=== PATIENT | male | born 1940 | race Caucasian/White ===

== ENCOUNTER 2020-04-21 14:19 | Outpatient (CLI) | payer OTHER, SELFPAY ==
--- NOTE | 2020-04-24 14:15 | ONC FU_ITS ---
Dr. Cortez Patient Follow-Up Note Patient: Brad Mcdonald Unit #: [id number]: 1940 Dicatated By: Christian Cortez M.D.Date of Visit:Apr 21, 2020 Onc Med Follow-up/Prog Note Chief Complaint: Mediastinal/hilar lymphadenopathy. History of Present Illness: This is a 79 year-old man with mediastinal and right hilar lymphadenopathy. In December 2018 he had been seen by Dr. Roman because of pain in his left ear and jaw. His evaluation included a neck CT on 12/11/2018, which showed no significant soft tissue neck abnormality. There was cervical spondylosis and facet joint osteoarthritic changes at multiple levels. On 04/03/2019 he had further evaluation with contrast-enhanced CT of the chest. It showed some probable scarring in the posterior right midlung field. There were no other pulmonary parenchymal abnormalities described. There was noted to be a prominent superior mediastinal lymph node as well as smaller nodes within the mediastinum. A prominent lymph node also was noted in the right hilum. The clinical significance was uncertain, but a 3-month follow-up CT was recommended. I had seen him initially on 05/07/2019, and I had agreed with the recommendation to monitor with surveillance CT scans at 3-month intervals. He receives his primary care through the [facility] in [place]. He has multiple medical illnesses including hypertension, hyperlipidemia, type II diabetes, and GERD. He has a cardiac arrhythmia. In July 2019 he underwent coronary angioplasty/stent placement after presenting to the emergency room with chest pain. He has never smoked, but he does have a long history of chewing tobacco. INTERIM HISTORY: Following my initial visit with him he had continued his follow-up through the [facility]. I was expecting him to have a repeat chest CT in June, but that apparently was not done. His clinical course was then complicated by the hospitalization in July. Ultimately, he did have a repeat chest CT on 04/08/2020. It showed mediastinal and pulmonary granulomatous calcifications. There were irregular densities compatible with scant interstitial scarring in the lower lungs. No other mass or active infiltrate was noted. Multiple and somewhat conspicuous though not measurably enlarged or otherwise obviously pathologic mediastinal lymph nodes were again noted, but without interval change. His recent evaluation also included an MRI of the lumbar spine on 03/24/2020. It showed a central herniation of the L4-L5 disc but without neural impingement. There was no acute osseous abnormality noted. He is seen for a follow-up visit. His energy level is somewhat variable, but overall about the same. His ECOG score is 2. He has good appetite. His weight is up 10 pounds. He has not had fever or night sweats. He does not complain of shortness of breath or cough. He has just occasional chest pain. He has no GI complaints. He does report having some bladder leakage at night. He has been having pain in his back and in his shoulders and hips. He does not complain of headache or dizziness. He has some numbness in his toes, especially on the right foot. Medications: Atorvastatin Calcium 1 Tablet Oral daily, B-12 1 Tablet (of 1000 mcg) Oral daily, Clopidogrel Bisulfate 1 Tablet (of 75 mg) Oral daily, dilTIAZem HCl ER 1 Tablet Capsule SR 24 HR Oral b.i.d., Famotidine 1 Tablet (of 20 mg) Oral b.i.d., Gabapentin 1 Capsule (of 400 mg) Oral t.i.d. PRN, metFORMIN HCl 1 Tablet (of 1000 mg) Oral b.i.d., Metoprolol Tartrate 0.5 Tablet (of 50 mg) Oral b.i.d., Multivitamin Adults 1 Tablet Oral daily, NovoLIN 70/30 30 Units (of (70-30) 100 Units/mL) Subcutaneous b.i.d., PreserVision AREDS 1 Tablet Oral b.i.d., Tamsulosin HCl 1 Capsule (of 0.4 mg) Oral b.i.d., traMADol HCl 1 Tablet (of 50 mg) Oral four times a day PRN, Vitamin C 1 Capsule (of 500 mg) Oral daily, Vitamin D3 1 CA 125 Units/mL (of 2000 Units) Capsule Oral daily Allergies: Sulfa Antibiotics Review of Systems: Constitutional - His energy is variable, but overall about the same. He has limited activity. His appetite is good. His weight is up 10 pounds. He has no fever or night sweats. ECOG score is 2, ENMT - He complains that his nose closes up. No mouth sores. No sore throat or difficulty swallowing, Hematologic/Lymphatic - He has easy bruising, Respiratory - No shortness of breath. No cough. No pleuritic pain or hemoptysis, Cardiovascular - He underwent coronary angioplasty/stent placement in July 2019. He has occasional pain in the left chest, Gastrointestinal - No nausea or vomiting. No heartburn or acid reflux. No diarrhea or constipation. No blood in the stool or black stools, Genitourinary (M) - No dysuria or hematuria. No urinary frequency. He has some bladder leakage at night, Musculoskeletal - He has arthritis pain in his shoulders and hips. He also has back pain, Neurologic - No headache or dizziness. He has some numbness in his toes, particularly in the right foot. He has no other focal neurologic symptoms, Psychiatric - No anxiety or depression. He sometimes has difficulty sleeping. Vital Signs: Performed on Apr 21, 2020 14:41 Height - 70.50 in Weight - 173.2 lbs (HIGH) BSA - 1.97 sq.m BMI - 24.50 Temperature - 97.7 F (LOW) Pulse - 77 /min Respiration - 22 /min BP - 183/81 mm(hg) (HIGH) O2 Sat - 98 % Pain - 2 Physical Examination: Constitutional - He appears somewhat weak generally, Eyes - Sclerae nonicteric. Conjunctivae clear, ENMT - No lesions noted in the oral cavity, Hematologic/Lymphatic - No cervical, clavicular, or axillary adenopathy, Respiratory - Lungs are clear with diminished air movement bilaterally, Cardiovascular - Heart rhythm is irregular. There is no murmur, gallop, or rub noted, Abdomen - Soft. Liver and spleen are not enlarged. There is no abdominal mass or ascites noted and there is no inguinal adenopathy, Extremities - No edema, Neurologic - No focal neurologic deficits noted. Lab/Imaging: Laboratory studies from 04/08/2020 included CBC showing hemoglobin 14.0 g, white blood cell count 7400, and platelet count 165,000. Comprehensive metabolic profile showed borderline renal function with BUN 20 and creatinine 1.22 mg/dL. The bilirubin and liver enzymes were normal. Impression: 1. Patient with CT evidence of borderline enlarged mediastinal and right hilar lymph nodes. The clinical significance was uncertain. There were no other findings to suggest malignancy. 2. He had been showing gradual decline in performance status. His other medical illnesses include: 3. Hypertension. 4. Hyperlipidemia. 5. Type II diabetes. 6. Coronary artery disease with angioplasty/stent placement in July 2019. 7. Cardiac arrhythmia. 8. GERD. 9. Osteoarthritis. 10. Benign prostatic hypertrophy. 11. He has a history of depression. 12. 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 The initial plan was to continue monitoring his chest CT at 3-month intervals. His clinical course was complicated by a hospital admission in July 2019, at which time he underwent coronary angioplasty/stent placement. His clinical status has otherwise been stable. He ultimately did have a repeat chest CT in March 2020. According to the report, there appeared to be no interval enlargement of the lymph nodes and no other findings to suggest malignancy. Plan: He remains on observation/expectant management. I will obtain the CT disks from the [facility] and I will review them with the radiologist. He will have further evaluation and follow-up as indicated. Signed By: Christian Cortez M.D. <<Signature on File>>
== END 2020-04-21 14:20 | disposition home or self-care (01) ==
PROVIDERS: Family Provider General Practice; Visit Provider Internal Medicine Medical Oncology
DX: R59.0 Localized enlarged lymph nodes (principal); N40.0 Benign prostatic hyperplasia without lower urinary tract symptoms; I49.9 Cardiac arrhythmia, unspecified; F32.9 Major depressive disorder, single episode, unspecified; K21.9 Gastro-esophageal reflux disease without esophagitis; E78.5 Hyperlipidemia, unspecified; I10 Essential (primary) hypertension; E11.9 Type 2 diabetes mellitus without complications
CPT/HCPCS: 99214

== ENCOUNTER → 2021-04-15 09:02 | Outpatient (BNVA) | payer OTHER, SELFPAY | PROVIDERS: Family Provider General Practice; Visit Provider Surgery | DX: Z20.822 Contact with and (suspected) exposure to COVID-19 (principal) | CPT/HCPCS: 87635 ==

== ENCOUNTER 2021-04-20 10:06 | Day surgery (SDC) | payer OTHER, SELFPAY ==
[2021-04-19 14:21] VITALS: BMI 24.8
[2021-04-20] VITALS (8 sets, daily range): BP systolic 135–155; BP diastolic 44–81; PULSE 58–105; RESP 16–18; TEMP 36.3–36.7; O2SAT 99–100
[2021-04-20] MEDS: sodium chloride 0.9% 1,000 ML 30 ML IV (10:30)
--- NOTE | 2021-04-20 10:43 | P.HP_ITS ---
Same Day Surgery H&P Indication for Procedure/HPI DATE OF PROCEDURE: April 20, 2021 CHIEF COMPLAINT/INDICATIONFOR SURGICAL PROCEDURE: Cholelithiasis, biliary dyskinesia, plan for laparoscopic cholecystectomy PREOP DIAGNOSIS: Biliary dyskinesia PLANNED PROCEDRUE: Operation Date: 04/20/21 11:10 Proposed Procedures p Laparoscopic Cholecystectomy 25870 K82.8(Not Applicable) - Donovan Beltran MD Medications/Allergies* Home Medications Medication Instructions Recorded Confirmed Type artifi.tears(hypromellose)(PF) 0.3 1 drop OPHTHALMIC (EYE) BID PRN 12/12/19 04/19/21 History % eye drops cholecalciferol (vitamin D3) 50 2,000 unit PO DAILY 12/12/19 04/19/21 History mcg (2,000 unit) capsule diltiazem HCl 120 mg 120 mg PO BID 12/12/19 04/19/21 History capsule,extended release 12 hr docusate sodium 100 mg capsule 300 mg PO DAILY PRN cap 12/12/19 04/19/21 H istory gabapentin 400 mg capsule 400 mg PO TID 12/12/19 04/19/21 History glucose 4 gram chewable tablet 4 gm PO Q15M PRN 12/12/19 04/19/21 History insulin human U-100 NPH-regulr 35 unit SUBCUT BID ml 12/12/19 04/19/21 History 70-30 mix 100 unit/mL subcutaneous susp mecobalamin (vitamin B12) 1,000 1,000 mcg SUBLINGUAL DAILY 12/12/19 04/19/21 History mcg disintegrating tablet,sublingual metformin 1,000 mg tablet 1,000 mg PO BID 12/12/19 04/19/21 History metoprolol tartrate 50 mg tablet 25 mg PO BID tab 12/12/19 04/19/21 History nitroglycerin 0.4 mg sublingual 0.4 mg SUBLINGUAL Q5M PRN 12/12/19 04/19/21 History tablet tamsulosin 0.4 mg capsule 0.4 mg PO DAILY 12/12/19 04/19/21 History tramadol 50 mg tablet 50 mg PO QID PRN tab 12/12/19 04/19/21 History vit C 250 mg-vit E 90 mg-zinc 40 1 tab PO BID 12/12/19 04/19/21 History mg-copper 1 [id number] capsule ascorbic acid (vitamin C) 1,000 mg 1,000 mg PO DAILY tab 08/02/20 04/19/21 History tablet famotidine 20 mg tablet 20 mg PO BID tab 01/14/21 04/19/21 History Allergies/Adverse Reactions Allergy/AdvReac Type Severity Reaction Status Date / Time Sulfa (Sulfonamide Allergy UNKNOWN Verified 04/19/21 14:13 Antibiotics) Pertinent History/Comorbid Conditions* Medical History (Updated 03/18/21 @ 13:16 by Donovan Beltran MD) CAD (coronary artery disease) Diabetes mellitus HTN (hypertension) Hypercholesterolemia Hyperlipidemia Varicose veins of bilateral lower extremities with other complications Surgical History (Updated 03/18/21 @ 13:16 by Donovan Beltran MD) History of colonoscopy with polypectomy 01/2021 History of esophagogastroduodenoscopy (EGD) 01/2021 History of heart artery stent S/P blepharoplasty S/P cataract surgery S/P hemorrhoidectomy S/P skin biopsy Family History (Updated 12/12/19 @ 10:02 by Sera Bruno LPN) Diabetes Mother Heart disease Mother COPD (chronic obstructive pulmonary disease) Father Cancer Father Social History Smoking and tobacco status: current every day smoker (chew) Pertinent Exam Findings alert, oriented x 3 and regular rate & rhythm Recommendations Surgery/Procedure today Coding Level of Care Code Acute Biomedical Specialist for Reji Luciano
[2021-04-20 10:53] LABS: Glucose Point of Care 214 mg/dL (70-110)
--- NOTE | 2021-04-20 11:49 | P.ANESASSM_ITS ---
Pre-Anesthetic Assessment Pre-Anesthetic Assessment: Height/Weight: Height 1.78 m Weight 78.471 kg Temp Pulse Resp BP Pulse Ox 97.3 F L 58 L 18 135/67 99 04/20/21 10:25 04/20/21 10:25 04/20/21 10:25 04/20/21 10:25 04/20/21 10:25 Preop Diagnosis: Biliary dyskinesia Proposed Procedure: Operation Date: 04/20/21 11:10 Proposed Procedures p Laparoscopic Cholecystectomy 75719 K82.8(Not Applicable) - Donovan Beltran MD Was Beta Geovany taken within 24 hours: Yes Was Clonidine taken within 24 hours: N/A Last intake: Intake Last Liquid Date 04/19/21 Last Liquid Time 23:30 Last Solid Date 04/19/21 Last Solid Time 18:30 Social: Social History: No alcohol and No tobacco Exam: Pre-Anes Outpt Exam: alert, oriented x 3, clear to auscultation len aterally and regular rate & rhythm Airway: Submandibular: WNL Cervical ROM: WNL MP: 2 Dentition: Chipped CV/HEM: CV/HEM: CAD (stent) and HTN Metabolic: Metabolic: DM and Hyperlipidemia Anesthetic Plan: ASA status: 3 Anesthesia: General Risk of > 500 ml blood loss (7ml/kg in children): No PFSH Anesthesia PFSH: Medical History CAD (coronary artery disease) Diabetes mellitus HTN (hypertension) Hypercholesterolemia Hyperlipidemia Varicose veins of bilateral lower extremities with other complications Surgical History History of colonoscopy with polypectomy 01/2021 History of esophagogastroduodenoscopy (EGD) 01/2021 History of heart artery stent S/P blepharoplasty S/P cataract surgery S/P hemorrhoidectomy S/P skin biopsy Family History Mother Diabetes Heart disease Father Cancer COPD (chronic obstructive pulmonary disease) Social History Smoking and tobacco status: current every day smoker (chew) Data Anesthesia Other Labs: Laboratory Results - last 48 hr 04/20/21 10:48 POC Glucose 214 H Cardiac Studies: No Data to Display
--- NOTE | 2021-04-20 12:11 | PM.MISC ---
Documented by User: Monica Marie CRNA 04/20/21 12:47 Miscellaneous Note Purpose of Documentation: pyxis meds transfer (pharmacy notification) Note: meds pulled for previous surgery under Monalisa Ferguson this case cancelled and the patient was not in the pyxis anymore to transfer meds to [facility]. please charge meds to [facility] Documented by User: Asif oBrges 04/20/21 15:41
--- NOTE | 2021-04-20 13:44 | PM.OP ---
Operative Report Date of procedure: April 20, 2021 Pre-op Diagnosis: Biliary dyskinesia Post-op Diagnosis: Biliary dyskinesia Cholelithiasis Chronic cholecystitis Procedure Done: Laparoscopic cholecystectomy Specimens removed/disposition: Gallbladder Surgeon: Donovan Beltran Anesthesia: General Condition: stable Disposition: PACU Procedure: The patient was taken to the operating room and was intubated under general anesthesia. After the antibiotic had been administered, the abdomen was prepped and draped in a sterile manner. Using a #15 blade, a 1 centimeter infraumbilical curvilinear incision was made and using an open Peggy technique the peritoneal cavity was entered. A 10 millimeter port was placed and 15 millimeters of pneumoperitoneum was created. A 10 millimeter, 30 degrees scope was then introduced. Three 5 millimeter ports were placed in the epigastric, midclavicular and the anterior axillary line two fingerbreadths below the costal margin on the right side under the direct visualization. Ratcheted forceps were introduced into the lateral most port and was used to retract the fundus of the gallbladder cephalad and using forceps the infundibulum of the gallbladder was retracted laterally. The gallbladder was chronically inflamed and thickened. Using L-hook cautery the peritoneum overlying the Calot's triangle was opened medially and laterally until the cystic duct and the cystic artery were skeletonized. Dissection was carried along the body of the gallbladder and after ensuring critical view of safety, 4 clips applied on the cystic duct and 3 clips applied on the cystic artery and cut leaving, 3 clips on the remaining portion of the duct and 2 clips on the remaining portion of the artery. The rest of the gallbladder was dissected off the liver using L-hook cautery. There were couple of openings in the body of the gallbladder since the plane of dissection was difficult to identify due to inflammation, with spillage of stones which was irrigated and suctioned out. There was no bleeding or bile leaking noted from the gallbladder fossa and the clips appeared to be in place. An EndoCatch bag was introduced to remove the gallbladder. All the ports were removed under direct visualization and there was no bleeding noted from the port sites. The fascia of the umbilicus was closed using [id number] 0 Vicryl sutures and the subcutaneous tissue was approximated using 3-0 Vicryl sutures. The skin at all four ports were closed using 4-0 Monocryl and Dermabond. A total of 10 millimeters of 0.5% Marcaine was infiltrated around the port sites. The patient was stable throughout the procedure.
[2021-04-20] MEDS: HYDROcodone-acetaminophen 5-325 mg Tablet 1 TAB PO (14:12)
--- NOTE | 2021-04-20 15:41 | ANE.PACU2 ---
Inpatient post-anesthesia follow up: Airway intact: Yes Vital signs: Temperature 98.0 F Pulse Rate 94 Respiratory Rate 18 Blood Pressure 142/68 Pulse Oximetry 100 Oxygen Delivery Me thod Room Air Oxygen Flow Rate 8 Fraction of Inspir ed Oxygen Hydration adequate: Yes Nausea and vomiting: No Pain level: 2 Mental status: Baseline
== END 2021-04-20 14:35 | disposition home or self-care (01) ==
PROVIDERS: Visit Provider Surgery
PROC: 0FT44ZZ Resection of Gallbladder, Percutaneous Endoscopic Approach (ICD-10-PCS; CPT 47562; principal; 2021-04-20 11:00)
DX: K80.10 Calculus of gallbladder with chronic cholecystitis without obstruction (principal); I25.10 Atherosclerotic heart disease of native coronary artery without angina pectoris; Z95.5 Presence of coronary angioplasty implant and graft; I10 Essential (primary) hypertension; E11.9 Type 2 diabetes mellitus without complications; E78.5 Hyperlipidemia, unspecified; E78.00 Pure hypercholesterolemia, unspecified; F17.210 Nicotine dependence, cigarettes, uncomplicated; Z79.4 Long term (current) use of insulin
CPT/HCPCS: 47562; 36416; 82962; 88304; J0690; J3490; J7030

== ENCOUNTER 2021-10-04 09:45 | Outpatient (CLI) | payer OTHER, SELFPAY ==
--- NOTE | 2021-10-04 10:15 | USCV_ITS ---
Harry Brad Age: 81 Gender: M : 1940 Exam Date: 10/04/2021 10:27 Ordering Phys: Junior Nicholas MD ([email or web address]) Technologist: [email or web address] [place]am [place] [facility] [place]ication: POSSIBLE OCCLUSION/STENOSIS Risk Factors: Previous Vascular Surgery: Right Brachial BP: / Left Brachial BP: / Right Left Velocity (cm/s) Spectral Plaque Velocity (cm/s) Spectral Plaque Syst/Diast Broadening Syst/Diast Broadening 61.70/ 3.30 Prox CCA 50.10 / 4.90 42.70/ 5.40 Mid CCA 38.30 / 5.90 48.90/ 6.20 Distal CCA 34.40 / 4.90 39.60/ 5.40 Prox ICA 77.60 / 10.50 26.50/ 4.30 Mid ICA 77.60 / 10.50 20.50/ 3.40 Distal ICA 53.65 / 8.50 49.70 ECA 81.50 0.64 ICA/CCA 1.55 Vertebral 28.20/ 3.40 cm/s 61.80/ 2.65 cm/s Subclavian 73.60 CONCLUSIONS Right ICA stenosis <50%. Mild atheromatous plaque right carotid bulb/ICA. Left ICA stenosis <50%. Moderate atheromatous plaque left carotid bulb/ICA. Normal antegrade Doppler flow noted in the right vertebral artery. Normal antegrade Doppler flow noted in the left vertebral artery. Jameel Sandoval MD (Electronically Signed) Final Date: 04 October 2021 12:27 S
== END 2021-10-04 09:46 | disposition home or self-care (01) ==
LOC: RAD 09:50
PROVIDERS: Visit Provider Internal Medicine Cardiovascular Disease
DX: I65.23 Occlusion and stenosis of bilateral carotid arteries (principal); M25.569 Pain in unspecified knee
CPT/HCPCS: 73560; 73565; 93880

== ENCOUNTER → 2022-01-23 14:32 | Outpatient (BNVA) | payer OTHER, SELFPAY | PROVIDERS: Visit Provider Internal Medicine Cardiovascular Disease | DX: I25.10 Atherosclerotic heart disease of native coronary artery without angina pectoris (principal); I65.29 Occlusion and stenosis of unspecified carotid artery; I10 Essential (primary) hypertension; E78.5 Hyperlipidemia, unspecified; F17.220 Nicotine dependence, chewing tobacco, uncomplicated | CPT/HCPCS: 99214 ==

== ENCOUNTER → 2022-08-10 12:49 | Outpatient (BNVA) | payer OTHER, SELFPAY | PROVIDERS: Visit Provider Nurse Practitioner Family | DX: I25.10 Atherosclerotic heart disease of native coronary artery without angina pectoris (principal); F17.220 Nicotine dependence, chewing tobacco, uncomplicated; I10 Essential (primary) hypertension | CPT/HCPCS: 99214 ==

== ENCOUNTER 2022-08-17 14:02 | Outpatient (CLI) | payer OTHER, SELFPAY ==
--- NOTE | 2022-08-17 14:30 | USCV_ITS ---
Brad Mcdonald Age: 81 Gender: M : 1940 Exam Date: 08/17/2022 14:26 Ordering Phys: Cheryl Sepulveda Technologist: SANDY Exam Location: [facility] Indication: EVAL FOR CAROTID STENOSIS Risk Factors: Previous Vascular Surgery: Right Brachial BP: / Left Brachial BP: / Right Left Velocity (cm/s) Spectral Plaque Velocity (cm/s) Spectral Plaque Syst/Diast Broadening Syst/Diast Broadening 109.40/17.90 Prox CCA 78.90 / 12.00 64.90/ 8.50 Mid CCA 66.00 / 14.80 54.70/ 9.40 Distal CCA 66.80 / 12.40 44.70/ 9.70 Prox ICA 87.10 / 14.30 57.30/ 12.00 Mid ICA 76.90 / 16.30 66.45/ 15.15 Distal ICA 72.20 / 18.60 99.10 ECA 99.20 0.69 ICA/CCA 1.10 Antegrade Vertebral Antegrade 49.30/ 8.30 cm/s 51.30/ 9.30 cm/s Tri Subclavian Tri 76.40 139.3 0 FINDINGS Comparison:. 10/04/21. No significant elevation of systolic or diastolic velocities. Waveforms are normal. Minimal bilateral, atherosclerotic plaque with no elevation of velocity. Antegrade vertebral arteries. CONCLUSIONS Bilateral ICA stenosis less than 50%. No interval change in stenosis since prior exam. Dr. Fanta Jackman DO (Electronically Signed) Final Date: 17 August 2022 15:09 S
== END 2022-08-17 14:03 | disposition home or self-care (01) ==
LOC: RAD 14:03
PROVIDERS: Visit Provider Nurse Practitioner Family
DX: R09.89 Other specified symptoms and signs involving the circulatory and respiratory systems (principal)
CPT/HCPCS: 93880

== ENCOUNTER → 2023-02-23 10:44 | Outpatient (BNVA) | payer OTHER, SELFPAY | PROVIDERS: Visit Provider Nurse Practitioner Family | DX: L82.1 Other seborrheic keratosis (principal); Z85.828 Personal history of other malignant neoplasm of skin; L57.8 Other skin changes due to chronic exposure to nonionizing radiation; L57.0 Actinic keratosis; L81.4 Other melanin hyperpigmentation; D22.5 Melanocytic nevi of trunk; Z71.89 Other specified counseling; L85.3 Xerosis cutis; S51.811A Laceration without foreign body of right forearm, initial encounter; S51.812A Laceration without foreign body of left forearm, initial encounter; X58.XXXA Exposure to other specified factors, initial encounter | CPT/HCPCS: 17000; 17003; 99214 ==

== ENCOUNTER → 2023-02-27 12:58 | Outpatient (BNVA) | payer OTHER, SELFPAY | PROVIDERS: Visit Provider Specialist | DX: I25.10 Atherosclerotic heart disease of native coronary artery without angina pectoris (principal); I10 Essential (primary) hypertension; E78.00 Pure hypercholesterolemia, unspecified; F17.220 Nicotine dependence, chewing tobacco, uncomplicated; Z79.82 Long term (current) use of aspirin | CPT/HCPCS: 99214 ==

== ENCOUNTER → 2023-07-12 14:21 | Outpatient (BNVA) | payer OTHER, SELFPAY | PROVIDERS: Visit Provider Podiatrist Foot & Ankle Surgery | DX: E11.42 Type 2 diabetes mellitus with diabetic polyneuropathy (principal); L60.3 Nail dystrophy; M20.41 Other hammer toe(s) (acquired), right foot; M20.42 Other hammer toe(s) (acquired), left foot; Z79.4 Long term (current) use of insulin; Z79.84 Long term (current) use of oral hypoglycemic drugs | CPT/HCPCS: 11721; 99203 ==

== ENCOUNTER → 2023-07-31 12:43 | Outpatient (BNVA) | payer OTHER, SELFPAY | PROVIDERS: Visit Provider Nurse Practitioner Family | DX: Z85.828 Personal history of other malignant neoplasm of skin (principal); L57.0 Actinic keratosis; L82.1 Other seborrheic keratosis; L57.8 Other skin changes due to chronic exposure to nonionizing radiation; L81.4 Other melanin hyperpigmentation; D22.5 Melanocytic nevi of trunk; L85.3 Xerosis cutis; S51.811A Laceration without foreign body of right forearm, initial encounter; S51.812A Laceration without foreign body of left forearm, initial encounter; X58.XXXA Exposure to other specified factors, initial encounter | CPT/HCPCS: 17000; 99213 ==

== ENCOUNTER → 2023-09-05 13:24 | Outpatient (BNVA) | payer OTHER, SELFPAY | PROVIDERS: Visit Provider Podiatrist Foot & Ankle Surgery | DX: E11.42 Type 2 diabetes mellitus with diabetic polyneuropathy (principal); Z79.4 Long term (current) use of insulin; L60.3 Nail dystrophy; M20.41 Other hammer toe(s) (acquired), right foot; M20.42 Other hammer toe(s) (acquired), left foot; Z79.84 Long term (current) use of oral hypoglycemic drugs | CPT/HCPCS: 11721 ==

== ENCOUNTER → 2023-09-11 13:43 | Outpatient (BNVA) | payer OTHER, SELFPAY | PROVIDERS: Visit Provider Internal Medicine Cardiovascular Disease | DX: I25.10 Atherosclerotic heart disease of native coronary artery without angina pectoris (principal); I65.23 Occlusion and stenosis of bilateral carotid arteries; E78.5 Hyperlipidemia, unspecified; I10 Essential (primary) hypertension; I83.893 Varicose veins of bilateral lower extremities with other complications; F17.220 Nicotine dependence, chewing tobacco, uncomplicated | CPT/HCPCS: 99214 ==

== ENCOUNTER → 2023-12-05 14:03 | Outpatient (BNVA) | payer OTHER, SELFPAY | PROVIDERS: Visit Provider Podiatrist Foot & Ankle Surgery | DX: E11.42 Type 2 diabetes mellitus with diabetic polyneuropathy (principal); L60.3 Nail dystrophy; M20.41 Other hammer toe(s) (acquired), right foot; M20.42 Other hammer toe(s) (acquired), left foot; Z79.84 Long term (current) use of oral hypoglycemic drugs; Z79.4 Long term (current) use of insulin | CPT/HCPCS: 11721 ==

== ENCOUNTER → 2024-03-11 13:32 | Outpatient (BNVA) | payer OTHER, SELFPAY | PROVIDERS: PCP Family Medicine; Visit Provider Internal Medicine Cardiovascular Disease | DX: I25.10 Atherosclerotic heart disease of native coronary artery without angina pectoris (principal); I10 Essential (primary) hypertension; I83.893 Varicose veins of bilateral lower extremities with other complications; I65.23 Occlusion and stenosis of bilateral carotid arteries; E78.00 Pure hypercholesterolemia, unspecified | CPT/HCPCS: 99214 ==

== ENCOUNTER → 2024-06-18 13:16 | Outpatient (BNVA) | payer OTHER, SELFPAY | PROVIDERS: PCP Family Medicine; Visit Provider Podiatrist Foot & Ankle Surgery | DX: E11.42 Type 2 diabetes mellitus with diabetic polyneuropathy (principal); L60.3 Nail dystrophy; M20.41 Other hammer toe(s) (acquired), right foot; M20.42 Other hammer toe(s) (acquired), left foot; Z79.4 Long term (current) use of insulin; Z79.84 Long term (current) use of oral hypoglycemic drugs | CPT/HCPCS: 11721 ==

== ENCOUNTER → 2024-10-16 13:39 | Outpatient (BNVA) | payer OTHER, SELFPAY | PROVIDERS: PCP Family Medicine; Visit Provider Internal Medicine Cardiovascular Disease | DX: I10 Essential (primary) hypertension (principal); I25.10 Atherosclerotic heart disease of native coronary artery without angina pectoris; I65.23 Occlusion and stenosis of bilateral carotid arteries; E78.5 Hyperlipidemia, unspecified; K21.9 Gastro-esophageal reflux disease without esophagitis; I83.93 Asymptomatic varicose veins of bilateral lower extremities; F17.220 Nicotine dependence, chewing tobacco, uncomplicated | CPT/HCPCS: 99214 ==

== ENCOUNTER → 2024-12-17 14:27 | Outpatient (BNVA) | payer OTHER, SELFPAY | PROVIDERS: PCP Family Medicine; Visit Provider Podiatrist Foot & Ankle Surgery | DX: E11.42 Type 2 diabetes mellitus with diabetic polyneuropathy (principal); L60.3 Nail dystrophy; M20.41 Other hammer toe(s) (acquired), right foot; M20.42 Other hammer toe(s) (acquired), left foot | CPT/HCPCS: 11721 ==

== ENCOUNTER 2025-02-03 11:22 | Emergency (ER) | payer OTHER, SELFPAY ==
[2025-02-03 11:43] VITALS: BP 102/50; PULSE 88; RESP 18; TEMP 37.2; O2SAT 97; BMI 26.2
--- NOTE | 2025-02-03 11:57 | W.ED.MALEGU ---
HPI - Male Genitourinary General: Chief complaint: Urogenital-Male Stated complaint: pain when urinating, confusion Time Seen by Provider: 02/03/25 11:43 Source: patient Mode of arrival: ambulatory Limitations: no limitations History of Present Illness: 84-year-old male states he believes he has UTI states the last 2 days has had increased frequency along with burning with urination states he had a history UTIs in the past. States he had some slight confusion he is answer my questions appropriately states he just felt more tired than normal denies any hematuria or vomiting Associated symptoms: Reports dysuria; Deny nausea or vomiting Related Data Home Medications ?Medication ?Instructions ?Recorded ?Confirmed artifi.tears(hypromellose)(PF) 0.3 1 drop ophthalmic (eye) BID PRN 12/12/19 12/17/24 % eye drops Dry Eyes cholecalciferol (vitamin D3) 50 2,000 unit PO DAILY 12/12/19 12/17/24 mcg (2,000 unit) capsule diltiazem HCl 120 mg 120 mg PO BID 12/12/19 12/17/24 capsule,extended release 12 hr gabapentin 400 mg capsule 400 mg PO TID 12/12/19 12/17/24 glucose 4 gram chewable tablet 4 gm PO Q15M PRN Hypoglycemia 12/12/19 12/17/24 mecobalamin (vitamin B12) 1,000 1,000 mcg sublingual DAILY 12/12/19 12/17/24 mcg disintegrating tablet,sublingual metformin 1,000 mg tablet 1,000 mg PO BID 12/12/19 12/17/24 metoprolol tartrate 50 mg tablet 25 mg PO BID 12/12/19 12/17/24 nitroglycerin 0.4 mg sublingual 0.4 mg sublingual Q5M PRN chest 12/12/19 12/17/24 tablet (Nitrostat) pain vit C 250 mg-vit E 90 mg-zinc 40 1 tab PO BID 12/12/19 12/17/24 mg-copper 1 [id number]-[id number] capsule (PreserVision AREDS-2) ascorbic acid (vitamin C) 1,000 mg 1,000 mg PO DAILY 08/02/20 12/17/24 tablet famotidine 20 mg tablet (Pepcid) 20 mg PO BID 01/14/21 12/17/24 atorvastatin 40 mg tablet (Lipitor) 40 mg PO DAILY 10/16/24 12/17/24 insulin human U-100 NPH-regulr 50 unit SUBCUT DIRECTED 10/16/24 12/17/24 70-30 mix 100 unit/mL subcutaneous susp (Novolin 70/30 U-100 Insulin) tramadol 50 mg tablet 100 mg PO BID PRN pain 10/16/24 12/17/24 Previous Rx's ?Medication ?Instructions ?Recorded aspirin 81 mg tablet,delayed 81 mg PO DAILY #90 tabs 07/28/21 release (Adult Low Dose Aspirin) cephalexin 500 mg capsule 500 mg PO TID 7 days #21 caps 02/03/25 Allergies Allergy/AdvReac Type Severity Reaction Status Date / Time Sulfa (Sulfonamide Allergy UNKNOWN Verified 12/17/24 14:32 Antibiotics) Review of Systems Const: Denies: fever(s), chills, body aches or change in appetite ENMT: Denies: throat pain or dental pain Card: Denies: chest pain Resp: Denies: dyspnea GI: Denies: abdominal pain, nausea, vomiting or diarrhea : Reports: dysuria, urinary frequency and urinary urgency Musc: Denies: neck pain or back pain Skin/Breast: Denies: rash Neuro: Denies: headache(s) PFSH ED PFSH: Medical History History of nonmelanoma skin cancer Hypercholesterolemia Diabetes mellitus Hyperlipidemia CAD (coronary artery disease) Varicose veins of bilateral lower extremities with other complications HTN (hypertension) Surgical History Status post laparoscopic cholecystectomy (04/20/21) S/P hemorrhoidectomy S/P cataract surgery S/P blepharoplasty S/P skin biopsy History of colonoscopy with polypectomy 01/2021 History of esophagogastroduodenoscopy (EGD) 01/2021 History of heart artery stent Family History Mother Diabetes Heart disease Cancer Father COPD (chronic obstructive pulmonary disease) Lung disease Sister CAD (coronary artery disease), Onset Age: 80 Diabetes Sister CAD (coronary artery disease), Onset Age: 60 Family/Other Lung disease Denies family history of Clotting disorder Dementia Chronic kidney disease (CKD) Suicide Anesthesia complication Bleeding disorder Stroke Social History Smoking and tobacco/nicotine status: current every day tobacco/nicotine user smokeless tobacco Smokeless tobacco user: snuff Alcohol intake: never Substance/Drug Use: never Physical Exam Const: COMMON NORMALS: no acute distress, patient oriented x3 and healthy appearing GENERAL APPEARANCE: does not appear older than stated age HENMT: COMMON NORMALS: normocephalic and atraumatic HEAD & SCALP: normocephalic and atraumatic Eye: COMMON NORMALS: conjunctivae normal CONJUNCTIVA: Yes conjunctivae normal Neck/C-Spine: COMMON NORMALS: full ROM and supple Chest: COMMONS NORMALS: normal inspection of the chest Resp: COMMON NORMALS: normal respiratory effort, No retractions, No use of accessory muscles and clear to auscultation bilaterally AUSCULTATION: clear to auscultation bilaterally Cardio: COMMON NORMALS: regular rate, regular rhythm and No murmurs present (Cardio) RATE: regular rate RHYTHM: regular rhythm GI: COMMON NORMALS: Normal to inspection, nondistended, normoactive bowel sounds present, Soft to palpation, non-tender and no masses PALPATION: Yes Soft to palpation Extremity: COMMON NORMALS: normal to inspection and full ROM Neuro: COMMON NORMALS: patient oriented x3, moves all extremities and no focal motor deficits Psych: COMMON NORMALS: mental status grossly normal, Normal thought process present and cooperative THOUGHT PROCESS: Normal thought process present Skin: COMMON NORMALS: no rashes or lesions noted and no wounds GENERAL SKIN EXAM: no rashes or lesions noted Course Vital Signs: Vital signs: Vital Signs Temperature 98.9 F 02/03/25 11:43 Pulse Rate 88 02/03/25 11:43 Respiratory Rate 18 02/03/25 11:43 Blood Pressure 102/50 02/03/25 11:43 Pulse Oximetry 98 02/03/25 12:09 Oxygen Delivery Me thod Room Air 02/03/25 12:09 MDM - Male Medical Decision Making Patient presents for dysuria urine does show likely UTI does have hematuria as well did discuss CT findings of possible cyst on his kidney he is to follow-up with urology will start him on antibiotics he is to return if worsening he understands agrees to plan. Medical Records I reviewed the patient's medical records. Lab Data I reviewed the patient's lab results. 02/03/25 12:12 02/03/25 12:12 Radiology Impressions Abdomen/Pelvis CT 02/03/25 12:16 IMPRESSION: 1. No renal obstruction or hydronephrosis. 2. No ureteral calcifications. 3. Hyperdense mass from the posterior mid RIGHT kidney measures 1.3 cm. This may be a hemorrhagic cyst. Recommend follow-up renal ultrasound. 4. Prostate gland enlargement. 5. Normal appendix. 6. Mild diverticulosis without acute diverticulitis. 7. Bilateral fat-containing inguinal hernias. 8. Prior cholecystectomy. Laboratory Results WBC 16.92 10^3/uL (3.29-11.43) H 02/03/25 12:12 RBC 4.52 10^6/uL (3.85-5.65) 02/03/25 12:12 Hgb 13.10 g/dL (11.27-16.99) 02/03/25 12:12 Hct 41.0 % (37-53) 02/03/25 12:12 MCV 90.7 fl (82-101) 02/03/25 12:12 MCH 29.0 pg (27-33) 02/03/25 12:12 MCHC 32.0 g/dL (30-55) 02/03/25 12:12 RDW 13.8 % (12.1-15.1) 02/03/25 12:12 Plt Count 135 10^3/cmm (157-399) L 02/03/25 12:12 MPV 9.6 fL (7.4-10.4) 02/03/25 12:12 Neut % (Auto) 82.1 % 02/03/25 12:12 Lymph % (Auto) 6.9 % 02/03/25 12:12 [place] % (Auto) 9.9 % 02/03/25 12:12 Eos % (Auto) 0.1 % 02/03/25 12:12 Baso % (Auto) 0.2 % 02/03/25 12:12 Neut # (Auto) 13.89 10^3/uL (1.8-7.7) H 02/03/25 12:12 Lymph # (Auto) 1.2 10^3/uL (0.8-4.8) 02/03/25 12:12 [place] # (Auto) 1.7 10^3/uL (0.2-0.9) H 02/03/25 12:12 Eos # (Auto) 0.0 10^3/uL (0.0-0.8) 02/03/25 12:12 Baso # (Auto) 0.0 10^3/uL (0.0-0.1) 02/03/25 12:12 Nucleated RBC % (auto) 0 % 02/03/25 12:12 Nucleated RBCs # 0.0 /100WBC 02/03/25 12:12 Sodium 134 mmol/L (136-145) L 02/03/25 12:12 Potassium 4.6 mmol/L (3.5-5.1) 02/03/25 12:12 Chloride 98 mmol/L (98-107) 02/03/25 12:12 Carbon Dioxide 24 mmol/L (22-29) 02/03/25 12:12 Anion Gap 16.6 (5-19) 02/03/25 12:12 BUN 24 mg/dL (8-23) H 02/03/25 12:12 Creatinine 1.2 mg/dL (0.7-1.2) 02/03/25 12:12 GFR Calculation Not Reportable 02/03/25 12:12 Glucose 140 mg/dL (65-115) H 02/03/25 12:12 Calculated Osmolality 284 mOsm/kg (285-295) L 02/03/25 12:12 Calcium 9.2 mg/dL (8.5-10.5) 02/03/25 12:12 Total Bilirubin 0.7 mg/dL (0.15-1.2) 02/03/25 12:12 AST 14 U/L (0-40) 02/03/25 12:12 ALT 18 U/L (0-41) 02/03/25 12:12 Alkaline Phosphatase 104 U/L (40-130) 02/03/25 12:12 Total Protein 6.9 g/dL (6.6-8.7) 02/03/25 12:12 Albumin 3.8 g/dL (3.5-5.2) 02/03/25 12:12 Globulin 3.1 g/dL (1.3-4.6) 02/03/25 12:12 Lipase 9 U/L (13-60) L 02/03/25 12:12 Urine Color Yellow (Yellow) 02/03/25 11:55 Urine Appearance Clear (CLEAR) 02/03/25 11:55 Urine pH 6.0 (5-7) 02/03/25 11:55 Ur Specific [place] 1.018 (1.005-1.030) 02/03/25 11:55 Urine Protein 1+ (Negative) A 02/03/25 11:55 Urine Glucose (UA) Negative (Normal) 02/03/25 11:55 Urine Ketones Negative (Negative) 02/03/25 11:55 Urine Blood 3+ (Negative) A 02/03/25 11:55 Urine Nitrate Negative (Negative) 02/03/25 11:55 Urine Bilirubin Negative (Negative) 02/03/25 11:55 Urine Urobilinogen 1.0 mg/dL (Negative) 02/03/25 11:55 Ur Leukocyte Esterase 2+ (Negative) A 02/03/25 11:55 Urine RBC 21-50 /hpf (0-2) H 02/03/25 11:55 Urine WBC 51-100 /hpf (0-5) H 02/03/25 11:55 Ur Squamous Epith Cells 0-5 /hpf (0-5) 02/03/25 11:55 Amorphous Sediment Not Reportable 02/03/25 11:55 Urine Bacteria Trace /hpf (NONE) 02/03/25 11:55 Hyaline Casts 0-4 /lpf H 02/03/25 11:55 All radiology interpretation(s) finalized by discharge Discharge Plan Discharge Patient Disposition: Home Clinical Impression: Urinary tract infection, Hematuria Condition: Stable Prescriptions: New cephalexin 500 mg capsule 500 mg PO TID 7 Days Qty: 21 0RF No Action mecobalamin (vitamin B12) 1,000 mcg tablet,disintegrating 1,000 mcg SUBLINGUAL DAILY diltiazem HCl 120 mg capsule,extended release 12 hr 120 mg PO BID gabapentin 400 mg capsule 400 mg PO TID metformin 1,000 mg tablet 1,000 mg PO BID metoprolol tartrate 50 mg tablet 25 mg PO BID nitroglycerin [Nitrostat] 0.4 mg tablet, sublingual 0.4 mg SUBLINGUAL Q5M PRN (Reason: chest pain) artifi.tears(hypromellose)(PF) 0.3 % drops 1 drop ophthalmic (eye) BID PRN (Reason: Dry Eyes) PreserVision AREDS-2 [id number] mc-chmt-dd-mg capsule 1 tab PO BID glucose 4 gram tablet,chewable 4 gm PO Q15M PRN (Reason: Hypoglycemia) cholecalciferol (vitamin D3) 50 mcg (2,000 unit) capsule 2,000 unit PO DAILY ascorbic acid (vitamin C) 1,000 mg tablet 1,000 mg PO DAILY famotidine [Pepcid] 20 mg tablet 20 mg PO BID Novolin 70/30 U-100 Insulin 100 unit/mL (70-30) suspension 50 unit SUBCUT DIRECTED Rx Instructions: 50 units am 15 units noon 50 units pm tramadol 50 mg tablet 100 mg PO BID PRN (Reason: pain) aspirin [Adult Low Dose Aspirin] 81 mg tablet,delayed release (DR/EC) 81 mg PO DAILY Qty: 90 3RF atorvastatin [Lipitor] 40 mg tablet 40 mg PO DAILY Discharge Orders: Discharge ED (Routine); Ordered 02/03/25 Ordered By: Douglas Pleitez Discharge Diet: Advance as tolerated Discharge Activity: Resume usual activity Patient Instructions: Urinary Tract Infection in Men (ED), Hematuria (ED) Print Language: Romanian Coding Level of Care Code ED Platform Attendant for Reji Luciano
[2025-02-03 12:02] LABS: Bilirubin Urine Negative (Negative); Blood Urine 3+ (Negative); Glucose Urine UA Negative (Normal); Ketones Urine Negative (Negative); Leukocyte Esterase Urine 2+ (Negative); Nitrate Urine Negative (Negative); Protein Urine 1+ (Negative); Specific Gravity, Urine 1.018 (1.005-1.030); Urine Appearance Clear (CLEAR); Urine Color Yellow (Yellow)
[2025-02-03 12:05] LABS: Add Urine Microscopic? YES; Bacteria Urine Trace /hpf; Hyaline Casts Urine 0-4 /lpf; RBC Urine 21-50 /hpf (0-2); Squamous Epithelial Cell Urine 0-5 /hpf (0-5); WBC Urine 51-100 /hpf (0-5)
[2025-02-03 12:09] VITALS: O2SAT 98
[2025-02-03 12:15] LABS: Add Urine Culture? Yes
--- NOTE | 2025-02-03 12:16 | CT_ITS ---
WS: [id number] CT ABDOMEN AND PELVIS NONCONTRAST HISTORY: hematuria TECHNIQUE: Imaging performed through the abdomen and pelvis. Coronal and sagittal reformats are submitted. All CT scans at [facility] use at least one of these dose optimization techniques: automated exposure control; mA and/or kV adjustment per patient size (includes targeted exams where dose is matched to clinical indication); or iterative reconstruction. DLP: 669.72 mGy.cm COMPARISON: None available. Lower thorax: Dependent changes at the lung bases. Heart size is normal. Small hiatal hernia. Liver: Normal size liver. No mass or bile duct dilatation. Gallbladder: Prior cholecystectomy. No bile duct dilatation. Pancreas: Normal size and attenuation. Normal pancreatic duct. No pancreatitis or mass. Spleen: Normal size with granulomata. Adrenal glands: Normal. No mass. Right kidney: Perinephric stranding. No obstruction. Hyperdense mass from the posterior mid kidney measures 1.3 cm. No obstruction. Left kidney: Mild perinephric stranding with no obstruction. Aorta: Moderate to severe atherosclerosis abdominal aorta. No aneurysm. Atherosclerosis continues into the common iliac arteries. No free fluid, intraperitoneal air or significant lymphadenopathy. GI tract: Small hiatal hernia. Nondistended stomach. No small bowel obstruction. Normal appendix. Mild distal diverticulosis without acute diverticulitis throughout the descending and sigmoid colon. Mild constipation. Abdominal wall: Tiny umbilical hernia contains fat. Patent bilateral inguinal canals also containing fat only. Pelvis: No free fluid. Urinary bladder is only minimally distended. Prostate is mildly enlarged encroaching upon the bladder. Osseous structures: Unremarkable. CT/CT kidney stone [id number] IMPRESSION: 1. No renal obstruction or hydronephrosis. 2. No ureteral calcifications. 3. Hyperdense mass from the posterior mid RIGHT kidney measures 1.3 cm. This m ay be a hemorrhagic cyst. Recommend follow-up renal ultrasound. 4. Prostate gland enlargement. 5. Normal appendix. 6. Mild diverticulosis without acute diverticulitis. 7. Bilateral fat-containing inguinal hernias. 8. Prior cholecystectomy.
[2025-02-03 12:27] LABS: Basophils % 0.2 %; Eosinophils % 0.1 %; Lymphocytes # 1.2 10^3/uL (0.8-4.8); Lymphocytes % 6.9 %; Mean Corpuscular Volume 90.7 fl (82-101); Mean Platelet Volume 9.6 fL (7.4-10.4); Monocytes # 1.7 10^3/uL (0.2-0.9); Monocytes % 9.9 %; Neutrophils # 13.89 10^3/uL (1.8-7.7); Neutrophils % 82.1 %; Nucleated Red Blood Cells % 0 %; Platelet Count 135 10^3/cmm (157-399); Red Blood Count 4.52 10^6/uL (3.85-5.65); Red Cell Distribution Width 13.8 % (12.1-15.1); White Blood Count 16.92 10^3/uL (3.29-11.43)
[2025-02-03] MEDS: cefTRIAXone 1,000 mg SDV 1000 MG IVP (12:27)
[2025-02-03 12:49] LABS: Alanine Aminotransferase 18 U/L (0-41); Albumin Level 3.8 g/dL (3.5-5.2); Alkaline Phosphatase 104 U/L (40-130); Anion Gap 16.6 (5-19); Aspartate Amino Transferase 14 U/L (0-40); Blood Urea Nitrogen 24 mg/dL (8-23); Calcium 9.2 mg/dL (8.5-10.5); Carbon Dioxide 24 mmol/L (22-29); Chloride 98 mmol/L (98-107); Creatinine Clr Calc Pharmacy 50.8005; Globulin 3.1 g/dL (1.3-4.6); Glucose 140 mg/dL (65-115); Lipase 9 U/L (13-60); Osmolality Calculated 284 mOsm/kg (285-295); Potassium 4.6 mmol/L (3.5-5.1); Sodium 134 mmol/L (136-145); Total Bilirubin 0.7 mg/dL (0.15-1.2); Total Protein 6.9 g/dL (6.6-8.7)
[2025-02-03 13:47] VITALS: BP 110/74; PULSE 76; O2SAT 96
--- NOTE | 2025-02-05 09:00 | DCPLANNER ---
faxed urology referral to [facility]
== END 2025-02-03 13:48 | disposition home or self-care (01) ==
PROVIDERS: Emergency Provider Emergency Medicine
DX: N39.0 Urinary tract infection, site not specified (principal); R31.9 Hematuria, unspecified; E78.5 Hyperlipidemia, unspecified; E11.9 Type 2 diabetes mellitus without complications; I25.10 Atherosclerotic heart disease of native coronary artery without angina pectoris; I10 Essential (primary) hypertension; F17.220 Nicotine dependence, chewing tobacco, uncomplicated; Z79.899 Other long term (current) drug therapy; Z79.82 Long term (current) use of aspirin; Z79.4 Long term (current) use of insulin; Z79.84 Long term (current) use of oral hypoglycemic drugs
CPT/HCPCS: 36415; 74176; 80053; 81001; 83690; 85025; 87077; 87086; 87186; 96374; 99285; J0696

== ENCOUNTER → 2025-03-09 13:17 | Outpatient (BNVA) | payer OTHER, SELFPAY | PROVIDERS: Visit Provider Podiatrist Foot & Ankle Surgery | DX: E11.42 Type 2 diabetes mellitus with diabetic polyneuropathy (principal); L60.3 Nail dystrophy; M20.41 Other hammer toe(s) (acquired), right foot; E11.8 Type 2 diabetes mellitus with unspecified complications; M20.42 Other hammer toe(s) (acquired), left foot; Z79.4 Long term (current) use of insulin; Z79.84 Long term (current) use of oral hypoglycemic drugs | CPT/HCPCS: 11721 ==

== ENCOUNTER 2025-05-06 13:49 | Emergency (ER) | payer OTHER, SELFPAY ==
[2025-05-06 14:01] VITALS: BP 121/62; PULSE 87; RESP 16; TEMP 37; O2SAT 97
--- NOTE | 2025-05-06 14:01 | ECG_ITS ---
[facility]: 2025-[facility]06 Pat Name: Brad Mcdonald Department: Room: Gender: Male It Desktop Support Specialist: : 1940 Requested By: Ceasar Kearns Order Number: [id number] [place] MD: Blanco Odom M.D. Measurements Intervals [place] Rate: 84 P: 64 NH: 160 QRS: 33 QRSD: 89 T: 58 QT: 329 QTc: 389 Interpretive Statements SINUS RHYTHM Compared to ECG 08/03/2019 09:21:48 Ventricular premature complex(es) no longer present ST-T-wave abnormality no longer present Electronically Signed On 05-06-2025 22:50:22 CDT by Blanco Odom M.D. [id number]
--- OUTSIDE RECORDS SUMMARY | 2025-05-06 14:01 | XMS_ITS | Clinical Summary ---
Author Organization [facility] Address [address] [place] [address] Phone Care Team Providers Care Career Consultant Name Role Phone Roby Martínez MD Primary Care Provider [phone] Allergies Active Allergy Reactions Criticality Noted Date Comments Sulfa (Including Sulfonamide Antibiotics) 09/22/2015 Medications aspirin 81 MG EC tablet Take 81 mg by mouth one (1) time a day Active diltiazem (CARDIZEM CD) 180 MG 24 hr capsule Take 180 mg by mouth one (1) time a day Active docusate sodium (COLACE) 100 MG capsule Take 100 mg by mouth 2 (two) times a day Active glipiZIDE (GLUCOTROL) 10 MG tablet Take 10 mg by mouth 2 (two) times a day before meals Active insulin NPH-insulin regular (HUMULIN 70/30,NOVOLIN 70/30) 100 unit/mL (70-30) injectionIndica tions:Take 32 units QAM and 16 units QHS Inject under the skin 2 (two) times a day before meals Active metFORMIN (GLUCOPHAGE) 1000 MG tabletIndicatio ns:Take 1.5 tablets Take 1,000 mg by mouth one (1) time a day Active metoprolol (TOPROL-XL) 100 MG 24 hr tablet Take 100 mg by mouth one (1) time a day Active ranitidine (ZANTAC) 15 mg/mL syrup Take by mouth Acti ve simvastatin (ZOCOR) 20 MG tablet Take 20 mg by mouth nightly Active tamsulosin (FLOMAX) 0.4 mg Cp24 Take 0.4 mg by mouth daily after breakfast Active traMADol (ULTRAM) 50 mg tablet Take 50 mg by mouth every 6 (six) hours as needed for pain Active gabapentin (NEURONTIN) 300 MG capsule Take 300 mg by mouth 3 (three) times a day Active ascorbic acid (VITAMIN C) 250 MG tablet Take 500 mg by mouth one (1) time a day Active cyanocobalamin, vitamin B-12, (VITAMIN B-12) 2,[address] 2,500 mcg under the tongue one (1) time a day Active vitamin E 400 UNIT capsule Take 400 Units by mouth one (1) time a day Active vitamin A 8000 UNIT capsule Take 8,000 Units by mouth one (1) time a day Active zinc 50 mg Tab tablet Take 50 mg by mouth one (1) time a day Active ANTIOX #8/OM3/DHA/EPA/ LUT/ZEAX (PRESERVISION AREDS 2, OMEGA-3, ORAL) Take by mouth 2 (two) times a day Active chromium-enoch l bartlett 200-500 mcg-mg Tab Take by mouth one (1) time a day Active cephalexin (KEFLEX) 500 MG capsule Take one tablet by mouth three times a day for three days 9 capsule 0 6 Active HYDROcodone-lupillo taminophen (NORCO) 7.5-325 mg tablet Take one tablet by mouth every six hours as needed for pain 24 tablet 0 6 Active Active Problems No known active problems Family History Medical History Relation Name Comments Skin cancer Mother Relation Name Status Comments Mother Social History Tobacco Use Types Packs/Day Years Used Date Smoking Tobacco: Former Smokeless Tobacco: Current Snuff Alcohol Use Standard Drinks/Week Comments No 0 (1 standard drink = 0.6 oz pur e alcohol) Sexually Active Control Partners Comments Not Currently Sex and Gender Information Value Date Recorded Sex Assigned at Not on file Legal Sex Male 1:11 PM PSYCHIATRIC TECH Gender Identity Not on file Sexual Orientation Not on file Last Filed Vital Signs Vital Sign Reading Time Taken Comments Blood Pressure 135/72 12/24/2015 9:55 AM CDT Pulse 69 12/24/2015 9:55 AM CDT Temperature 36.4 C (97.5 F) 12/24/2015 9:55 AM CDT Respiratory Rate - - Oxygen Saturation 98% 12/24/2015 9:55 AM CDT Inhaled Oxygen Concentration - - Weight 77.6 kg (171 lb) 12/24/2015 9:55 AM CDT Height 179.1 cm (5' 10.5 ) 12/24/2015 9:55 AM CD T Body Mass Index 24.19 12/24/2015 9:55 AM CDT Plan of Treatment Health Maintenance Due Date Last Done Comments Annual Depression Screening 1951 Pneumococcal Vaccine Age 50+ (1 of 1 - PCV) 1991 RSV Immunization Pa tients or 60+ Years (1 - 1-dose 75+ series) 2016 Flu Vaccine (#1) 05/11/2025 Care Teams Career Consultant Relationship Specialty Start Date End Date Roby Martínez MD [address] [place] [address] PCP - General 09/22/15
--- NOTE | 2025-05-06 15:06 | XR_ITS ---
WS: [id number] Exam: XR chest 1V portable [id number] Date/Time of Exam: 05/06/2025 3:06 PM Reason For Exam: cough/congestion Comparison 08/02/2019. Lungs are fully expanded and clear. Normal cardiomediastinal silhouette. Chronic blunting of the LEFT costophrenic angle suggesting pleural thickening. Bony structures are intact. XR/XR chest 1V portable [id number] IMPRESSION: 1. No acute cardiopulmonary finding. Chronic pleural thickening LEFT costophren ic angle.
[2025-05-06 15:14] LABS: Glucose Urine UA Negative (Normal); Nitrate Urine Negative (Negative); Specific Gravity, Urine 1.024 (1.005-1.030)
[2025-05-06 15:16] LABS: Add Urine Microscopic? YES
--- NOTE | 2025-05-06 15:39 | W.ED.GENADLT ---
HPI - General Adult General: Chief complaint: General Medical Stated complaint: urinary Time Seen by Provider: 05/06/25 15:07 Source: patient and family Mode of arrival: wheelchair Limitations: no limitations History of Present Illness: Patient is a pleasant 84-year-old male who presents to the ED today with his daughter for medical evaluation. Patient states that he just feels like junk reporting body aches over the past 2 to 3 days as well as chills and subjective fevers. He generally feels weak. had reportedly noticed a nonproductive cough this morning. He has had some minor rhinorrhea and nasal congestion. He is not complaining of a headache or neck pain. No chest pain or shortness of breath. reportedly had told the daughter that he seemed confused this morning this was initially concerned for a UTI. Patient is not complaining of dysuria or cloudy or odorous urine. He does have frequent urination and nighttime urination that is chronic. He is not complaining of abdominal or flank pain. No vomiting or changes in bowel movements. Patient is alert and oriented at time of arrival. Onset (ago): day(s) Severity: moderate Relieving factors: none Exacerbating factors: none Associated symptoms: Deny chest pain, headache(s), rash, palpitations, syncope or vomiting Treatments prior to arrival: none Related Data Home Medications ?Medication ?Instructions ?Recorded ?Confirmed artifi.tears(hypromellose)(PF) 0.3 1 drop ophthalmic (eye) BID PRN 12/12/19 03/09/25 % eye drops Dry Eyes cholecalciferol (vitamin D3) 50 2,000 unit PO DAILY 12/12/19 03/09/25 mcg (2,000 unit) capsule diltiazem HCl 120 mg 120 mg PO BID 12/12/19 03/09/25 capsule,extended release 12 hr gabapentin 400 mg capsule 400 mg PO TID 12/12/19 03/09/25 glucose 4 gram chewable tablet 4 gm PO Q15M PRN Hypoglycemia 12/12/19 03/09/25 mecobalamin (vitamin B12) 1,000 1,000 mcg sublingual DAILY 12/12/19 03/09/25 mcg disintegrating tablet,sublingual metformin 1,000 mg tablet 1,000 mg PO BID 12/12/19 03/09/25 metoprolol tartrate 50 mg tablet 25 mg PO BID 12/12/19 03/09/25 nitroglycerin 0.4 mg sublingual 0.4 mg sublingual Q5M PRN chest 12/12/19 03/09/25 tablet (Nitrostat) pain vit C 250 mg-vit E 90 mg-zinc 40 1 tab PO BID 12/12/19 03/09/25 mg-copper 1 [id number] capsule (PreserVision AREDS-2) ascorbic acid (vitamin C) 1,000 mg 1,000 mg PO DAILY 08/02/20 03/09/25 tablet famotidine 20 mg tablet (Pepcid) 20 mg PO BID 01/14/21 03/09/25 atorvastatin 40 mg tablet (Lipitor) 40 mg PO DAILY 10/16/24 03/09/25 insulin human U-100 NPH-regulr 50 unit SUBCUT DIRECTED 10/16/24 03/09/25 70-30 mix 100 unit/mL subcutaneous susp (Novolin 70/30 U-100 Insulin) tramadol 50 mg tablet 100 mg PO BID PRN pain 10/16/24 03/09/25 Previous Rx's ?Medication ?Instructions ?Recorded aspirin 81 mg tablet,delayed 81 mg PO DAILY #90 tabs 07/28/21 release (Adult Low Dose Aspirin) Allergies Allergy/AdvReac Type Severity Reaction Status Date / Time Sulfa (Sulfonamide Allergy UNKNOWN Verified 03/09/25 12:31 Antibiotics) Review of Systems Const: Reports: chills and body aches; Denies: fever(s) or change in appetite Eyes: Denies: change in vision, blurry vision, photophobia, floaters or seeing flashes ENMT: Reports: throat pain, nasal discharge and nasal congestion; Denies: ear or mastoid pain or sinus pain Card: Denies: chest pain, palpitations, lightheadedness, syncope or pre-syncope Resp: Reports: non-productive cough and chest congestion; Denies: wheezing or hemoptysis GI: Denies: abdominal pain, vomiting or diarrhea : Reports: urinary frequency (chronic) and nocturia (chronic); Denies: flank pain or dysuria Musc: Denies: neck pain, back pain, extremity pain, extremity swelling, joint pain or joint swelling Skin/Breast: Denies: rash Neuro: Denies: headache(s), numbness in extremities, weakness in extremities, sensory changes or dizziness PFSH ED PFSH: Medical History History of nonmelanoma skin cancer Hypercholesterolemia Diabetes mellitus Hyperlipidemia CAD (coronary artery disease) Varicose veins of bilateral lower extremities with other complications HTN (hypertension) Surgical History Status post laparoscopic cholecystectomy (04/20/21) S/P hemorrhoidectomy S/P cataract surgery S/P blepharoplasty S/P skin biopsy History of colonoscopy with polypectomy 01/2021 History of esophagogastroduodenoscopy (EGD) 01/2021 History of heart artery stent Family History Mother Diabetes Heart disease Cancer Father COPD (chronic obstructive pulmonary disease) Lung disease Sister CAD (coronary artery disease), Onset Age: 80 Diabetes Sister CAD (coronary artery disease), Onset Age: 60 Family/Other Lung disease Denies family history of Clotting disorder Dementia Chronic kidney disease (CKD) Suicide Anesthesia complication Bleeding disorder Stroke Social History Smoking and tobacco/nicotine status: never used tobacco/nicotine Alcohol intake: never Substance/Drug Use: never Physical Exam Const: COMMON NORMALS: no acute distress, average body habitus, patient oriented x3, no limitations, healthy appearing, alert and well nourished GENERAL APPEARANCE: cooperative ORIENTATION/CONSCIOUSNESS: Yes awake, Yes oriented to person, Yes oriented to place and Yes oriented to time HENMT: COMMON NORMALS: normocephalic, atraumatic, external ears normal, EAC's normal, TM's normal bilaterally and Normal external nose present HEAD & SCALP: normal to inspection, normocephalic and atraumatic; no Mari's sign, no hematoma and no raccoon eyes FACE & SINUS: normal facial exam and sinuses nontender NOSE: Normal external nose present and Normal nares present EXTERNAL EAR: Yes external ears normal EXTERNAL AUDITORY CANAL: EAC's normal TYMPANIC MEMBRANE: TM's normal bilaterally MOUTH: Normal oral and palatal mucosa present, lip normal, tongue normal, Normal salivary glands and ducts present and other (no intraoral injuries noted) THROAT: posterior oropharynx normal and tonsils normal Eye: COMMON NORMALS: Equal, round and reactive pupils present and EOMs intact bilaterally GENERAL EYE: appearance normal, both eyes and all related structures and normal light reflex PUPIL: Yes Equal, round and reactive pupils present DIRECT OPHTHALMOSCOPY: Yes normal light reflex Neck/C-Spine: COMMON NORMALS: full ROM and no lymphadenopathy GENERAL: Yes normal visual inspection CERVICAL SPINE: Yes cervical ROM normal, No pain with cervical ROM, No Cervical spine tenderness, No step off deformity and No Paracervical muscle tenderness Chest: COMMONS NORMALS: normal inspection of the chest and normal palpation of entire chest wall Resp: COMMON NORMALS: normal respiratory effort and clear to auscultation bilaterally AUSCULTATION: clear to auscultation bilaterally Cardio: COMMON NORMALS: regular rate and regular rhythm RATE: regular rate RHYTHM: regular rhythm GI: COMMON NORMALS: Normal to inspection, nondistended, normoactive bowel sounds present, Soft to palpation, non-tender, No hepatosplenomegaly present and no masses INSPECTION: Yes normal to inspection and No abdominal wall ecchymosis AUSCULTATION: Yes normoactive bowel sounds PALPATION: Yes Soft to palpation and Yes No hepatosplenomegaly present : COMMON NORMALS: Yes no CVA tenderness BLADDER/KIDNEY EXAM: Yes no CVA tenderness Back/Pelvis: COMMON NORMALS: no CVA tenderness and thoracic and lumbar spine normal to inspection Extremity: COMMON NORMALS: normal to inspection and full ROM GENERAL: Yes normal exam except as noted Neuro: AGATA COMA SCALE: document GCS findings [place] coma scale eye opening: Spontaneous Agata coma scale verbal response: Orientated Agata coma scale motor response: Obey commands [place] coma scale total score: 15 COMMON NORMALS: patient oriented x3, CN's II-XII intact bilaterally, moves all extremities, no focal motor deficits and no sensory deficits noted SENSORIUM/ORIENTATION: Yes alert, Yes oriented to person, Yes oriented to place and Yes oriented to time SPEECH: speech normal GAIT: Yes Normal gait present Skin: COMMON NORMALS: no rashes or lesions noted GENERAL SKIN EXAM: no rashes or lesions noted TRAUMA: no lacerations or abrasions Course Vital Signs: Vital signs: Vital Signs Temperature 98.6 F 05/06/25 14:01 Pulse Rate 87 05/06/25 14:01 Respiratory Rate 16 05/06/25 14:01 Blood Pressure 121/62 05/06/25 14:01 Pulse Oximetry 97 05/06/25 14:01 Oxygen Delivery Me thod Room Air 05/06/25 14:01 MDM - General Adult Medical Decision Making Patient is an 84-year-old male here with his daughter for not feeling well over the past few days. His vital signs are stable upon arrival. He is complaining of generalized weakness but no focal deficits noted. He was ambulatory here in the emergency department. Daughter states his mentation has improved throughout the day and he is now alert and oriented. Blood work showing a normal white count. Chemistry showing minor elevations to his BUN/Cr 26/1.3. Daughter states he rarely drinks water and a generalized low fluid intake. His CXR and UA are not indicative of infection. Suspect this is viral in nature. Respiratory panel collected and pending. Daughter and patient both feel comfortable allowing discharge. Recommend continued conservative therapies and follow up instrucitons given. Medical Records I reviewed the patient's medical records. Lab Data I reviewed the patient's lab results. 05/06/25 15:32 05/06/25 15:32 Radiology Impressions Chest X-Ray 05/06/25 15:06 IMPRESSION: 1. No acute cardiopulmonary finding. Chronic pleural thickening LEFT costophrenic angle. Laboratory Results WBC 5.84 10^3/uL (3.29-11.43) 05/06/25 15:32 RBC 4.75 10^6/uL (3.85-5.65) 05/06/25 15:32 Hgb 13.30 g/dL (11.27-16.99) 05/06/25 15:32 Hct 42.3 % (37-53) 05/06/25 15:32 MCV 89.1 fl (82-101) 05/06/25 15:32 MCH 28.0 pg (27-33) 05/06/25 15:32 MCHC 31.4 g/dL (30-55) 05/06/25 15:32 RDW 14.3 % (12.1-15.1) 05/06/25 15:32 Plt Count 121 10^3/cmm (157-399) L 05/06/25 15:32 MPV 9.6 fL (7.4-10.4) 05/06/25 15:32 Neut % (Auto) 71.1 % 05/06/25 15:32 Lymph % (Auto) 12.0 % 05/06/25 15:32 [place] % (Auto) 16.1 % 05/06/25 15:32 Eos % (Auto) 0.2 % 05/06/25 15:32 Baso % (Auto) 0.3 % 05/06/25 15:32 Neut # (Auto) 4.15 10^3/uL (1.8-7.7) 05/06/25 15:32 Lymph # (Auto) 0.7 10^3/uL (0.8-4.8) L 05/06/25 15:32 [place] # (Auto) 0.9 10^3/uL (0.2-0.9) 05/06/25 15:32 Eos # (Auto) 0.0 10^3/uL (0.0-0.8) 05/06/25 15:32 Baso # (Auto) 0.0 10^3/uL (0.0-0.1) 05/06/25 15:32 Nucleated RBC % (auto) 0 % 05/06/25 15:32 Nucleated RBCs # 0.0 /100WBC 05/06/25 15:32 Sodium 133 mmol/L (136-145) L 05/06/25 15:32 Potassium 4.6 mmol/L (3.5-5.1) 05/06/25 15:32 Chloride 99 mmol/L (98-107) 05/06/25 15:32 Carbon Dioxide 24 mmol/L (22-29) 05/06/25 15:32 Anion Gap 14.6 (5-19) 05/06/25 15:32 BUN 26 mg/dL (8-23) H 05/06/25 15:32 Creatinine 1.3 mg/dL (0.7-1.2) H 05/06/25 15:32 GFR Calculation Not Reportable 05/06/25 15:32 Glucose 107 mg/dL (65-115) 05/06/25 15:32 Calculated Osmolality 281 mOsm/kg (285-295) L 05/06/25 15:32 Calcium 9.0 mg/dL (8.5-10.5) 05/06/25 15:32 Total Bilirubin 0.3 mg/dL (0.15-1.2) 05/06/25 15:32 AST 21 U/L (0-40) 05/06/25 15:32 ALT 25 U/L (0-41) 05/06/25 15:32 Alkaline Phosphatase 96 U/L (40-130) 05/06/25 15:32 Total Protein 7.2 g/dL (6.6-8.7) 05/06/25 15:32 Albumin 3.8 g/dL (3.5-5.2) 05/06/25 15:32 Globulin 3.4 g/dL (1.3-4.6) 05/06/25 15:32 Procalcitonin 0.09 ng/mL (0-0.5) 05/06/25 15:32 Urine Color Yellow (Yellow) 05/06/25 15:01 Urine Appearance Clear (CLEAR) 05/06/25 15:01 Urine pH 5.5 (5-7) 05/06/25 15:01 Ur Specific [place] 1.024 (1.005-1.030) 05/06/25 15:01 Urine Protein Trace (Negative) A 05/06/25 15:01 Urine Glucose (UA) Negative (Normal) 05/06/25 15:01 Urine Ketones Trace (Negative) 05/06/25 15:01 Urine Blood Negative (Negative) 05/06/25 15:01 Urine Nitrate Negative (Negative) 05/06/25 15:01 Urine Bilirubin Negative (Negative) 05/06/25 15:01 Urine Urobilinogen 1.0 mg/dL (Negative) 05/06/25 15:01 Ur Leukocyte Esterase Negative (Negative) 05/06/25 15:01 Urine RBC 0-2 /hpf (0-2) 05/06/25 15:01 Urine WBC 0-5 /hpf (0-5) 05/06/25 15:01 Ur Squamous Epith Cells 0-5 /hpf (0-5) 05/06/25 15:01 Amorphous Sediment Not Reportable 05/06/25 15:01 Urine Bacteria None seen /hpf (NONE) 05/06/25 15:01 Hyaline Casts 2.05 /lpf 05/06/25 15:01 All radiology interpretation(s) finalized by discharge Discharge Plan Discharge Patient Disposition: Home Clinical Impression: Viral illness Condition: Stable Prescriptions: No Action mecobalamin (vitamin B12) 1,000 mcg tablet,disintegrating 1,000 mcg SUBLINGUAL DAILY diltiazem HCl 120 mg capsule,extended release 12 hr 120 mg PO BID gabapentin 400 mg capsule 400 mg PO TID metformin 1,000 mg tablet 1,000 mg PO BID metoprolol tartrate 50 mg tablet 25 mg PO BID nitroglycerin [Nitrostat] 0.4 mg tablet, sublingual 0.4 mg SUBLINGUAL Q5M PRN (Reason: chest pain) artifi.tears(hypromellose)(PF) 0.3 % drops 1 drop ophthalmic (eye) BID PRN (Reason: Dry Eyes) PreserVision AREDS-2 [id number] capsule 1 tab PO BID glucose 4 gram tablet,chewable 4 gm PO Q15M PRN (Reason: Hypoglycemia) cholecalciferol (vitamin D3) 50 mcg (2,000 unit) capsule 2,000 unit PO DAILY ascorbic acid (vitamin C) 1,000 mg tablet 1,000 mg PO DAILY famotidine [Pepcid] 20 mg tablet 20 mg PO BID Novolin 70/30 U-100 Insulin 100 unit/mL (70-30) suspension 50 unit SUBCUT DIRECTED Rx Instructions: 50 units am 15 units noon 50 units pm tramadol 50 mg tablet 100 mg PO BID PRN (Reason: pain) aspirin [Adult Low Dose Aspirin] 81 mg tablet,delayed release (DR/EC) 81 mg PO DAILY Qty: 90 3RF atorvastatin [Lipitor] 40 mg tablet 40 mg PO DAILY Discharge Orders: Discharge ED (Routine); Ordered 05/06/25 Ordered By: Shanda Callejas Referrals: Beatrice Miranda MD [Primary Care Provider, Family Practice] Patient Instructions: Patient Portal & [facility] Instructions Activity Restrictions/Additional Instructions: As we discussed, I did not appear patient had a urinary tract infection. His chest x-ray was unremarkable. Blood work overall looks okay apart from he has minor elevations to his kidney functions. Recommend he push fluids and increase hydration. These can be followed up through primary care. Respiratory panel was collected and currently pending at time of discharge. He will be contacted with any positive results. Continue to treat symptoms conservatively. He may return to the emergency department or follow-up with primary care for worsening or not improving symptoms or any new concerning symptoms you may have. I hope patient begins to feel better soon. Print Language: Upper Sorbian Coding Level of Care Code ED [employer] for [employer]g Fwd
[2025-05-06 15:49] LABS: Hematocrit 42.3 % (37-53); Hemoglobin 13.30 g/dL (11.27-16.99); Mean Corpuscular HGB Conc 31.4 g/dL (30-55); Mean Corpuscular Hemoglobin 28.0 pg (27-33); Mean Corpuscular Volume 89.1 fl (82-101); Nucleated Red Blood Cells % 0 %; Platelet Count 121 10^3/cmm (157-399); Red Blood Count 4.75 10^6/uL (3.85-5.65); White Blood Count 5.84 10^3/uL (3.29-11.43)
[2025-05-06 16:20] LABS: Procalcitonin 0.09 ng/mL (0-0.5)
[2025-05-06 16:35] LABS: Alanine Aminotransferase 25 U/L (0-41); Albumin Level 3.8 g/dL (3.5-5.2); Alkaline Phosphatase 96 U/L (40-130); Anion Gap 14.6 (5-19); Aspartate Amino Transferase 21 U/L (0-40); Blood Urea Nitrogen 26 mg/dL (8-23); Calcium 9.0 mg/dL (8.5-10.5); Carbon Dioxide 24 mmol/L (22-29); Chloride 99 mmol/L (98-107); Creatinine Clr Calc Pharmacy 46.8927; Globulin 3.4 g/dL (1.3-4.6); Glucose 107 mg/dL (65-115); Osmolality Calculated 281 mOsm/kg (285-295); Potassium 4.6 mmol/L (3.5-5.1); Sodium 133 mmol/L (136-145); Total Protein 7.2 g/dL (6.6-8.7)
[2025-05-06 17:58] LABS: Coronavirus 229E,HKU1,NL63,OC4 Not Detected (NOT DETECT); Parainfluenza Virus Type 1 Not Detected (NOT DETECT); Parainfluenza Virus Type 2 Not Detected (NOT DETECT); Parainfluenza Virus Type 3 Not Detected (NOT DETECT); Parainfluenza Virus Type 4 Not Detected (NOT DETECT)
[2025-05-06 19:54] LABS: SARS-COV-2 Detected (NOT DETECT)
--- NOTE | 2025-05-06 23:46 | PC.NURSE ---
Notified patient's family Noreen of patient's positive covid status.
== END 2025-05-06 16:58 | disposition home or self-care (01) ==
PROVIDERS: Family Medicine; Emergency Provider Physician Assistant; PCP Family Medicine
DX: B34.9 Viral infection, unspecified (principal); Z79.84 Long term (current) use of oral hypoglycemic drugs; Z79.82 Long term (current) use of aspirin; I25.10 Atherosclerotic heart disease of native coronary artery without angina pectoris; E11.9 Type 2 diabetes mellitus without complications; E78.5 Hyperlipidemia, unspecified; I10 Essential (primary) hypertension; Z85.828 Personal history of other malignant neoplasm of skin
CPT/HCPCS: 36415; 71045; 80053; 81001; 84145; 85025; 87486; 87581; 87633; 93005; 99285

== ENCOUNTER → 2025-05-13 14:44 | Outpatient (BNVA) | payer OTHER, SELFPAY | PROVIDERS: PCP Family Medicine; Visit Provider Podiatrist Foot & Ankle Surgery | DX: E11.42 Type 2 diabetes mellitus with diabetic polyneuropathy (principal); L60.3 Nail dystrophy; M20.41 Other hammer toe(s) (acquired), right foot; M20.42 Other hammer toe(s) (acquired), left foot; Z79.84 Long term (current) use of oral hypoglycemic drugs; Z79.4 Long term (current) use of insulin | CPT/HCPCS: 11721 ==

== ENCOUNTER → 2025-07-22 13:54 | Outpatient (BNVA) | payer OTHER, SELFPAY | PROVIDERS: PCP Family Medicine; Visit Provider Podiatrist Foot & Ankle Surgery | DX: E11.42 Type 2 diabetes mellitus with diabetic polyneuropathy (principal); L60.3 Nail dystrophy; M20.41 Other hammer toe(s) (acquired), right foot; M20.42 Other hammer toe(s) (acquired), left foot; Z79.4 Long term (current) use of insulin; Z79.84 Long term (current) use of oral hypoglycemic drugs | CPT/HCPCS: 11721 ==